=== PATIENT | female | born 1980 | race Caucasian/White ===

== ENCOUNTER 2022-08-09 07:41 | Day surgery (SDC) | payer BC ==
[2022-08-09] VITALS (35 sets, daily range): BP systolic 126–172; BP diastolic 80–107
[~2022-08-09] VITALS: Ht 162.6 cm; Wt 61.0 kg
[~2022-08-09 07:41] MED LIST: BISA-78 PO; famotidine 20mg tablet PO ONE; ringers solution, lacted 1,000 ML IV SCH; tranexamic acid inj. 1,000 MG in normal saline IV soln 100ML IV ONE
[2022-08-09] MEDS ORDERED: methylPREDNISolone acetate 80mg/ml inj**IM only ONE (08:04)
[2022-08-09] MEDS ORDERED: tranexamic acid 100mg/ml inj. ONE (08:04)
[2022-08-09] MEDS ORDERED: LIDOCAINE 1%/EPI 1:100,000 inj. 10 ML multi-dose vial ONE (08:04)
[2022-08-09] MEDS ORDERED: cocaine 4% topical solution 4ml bottle ONE (08:04)
[2022-08-09] MEDS ORDERED: oxymetazoline 15 ML nasal spray NS ONE (08:05)
[2022-08-09] MEDS ORDERED: mupirocin 2% ointment 22GM ONE (08:05)
[2022-08-09] MEDS ORDERED: morphine 2 MG/ML inj. syringe IV PRN (09:35)
[2022-08-09] MEDS ORDERED: proCHLORperazine 10 MG/2 ml inj IV PRN (09:35)
[2022-08-09] MEDS ORDERED: ondansetron/PF 4mg/2ml inj IV PRN (09:35)
[2022-08-09] MEDS ORDERED: ringers solution, lacted 1,000 ML IV SCH (09:35)
[2022-08-09] MEDS ORDERED: morphine 4 MG/ML inj SYRINge IV PRN (09:35)
[2022-08-09] MEDS ORDERED: meperidine/PF 25mg/ml syringe IV PRN ×2 (09:35)
[2022-08-09] MEDS ORDERED: ondansetron/PF 4mg/2ml inj ONE (10:20)
[2022-08-09] MEDS ORDERED: sevoflurane 250ml liquid IH ONE (10:20)
[2022-08-09] MEDS ORDERED: dexamethasone sod phosphate 10mg/ml inj ONE (10:20)
[2022-08-09] MEDS ORDERED: FENTANYL CITRATE/PF 50 MCG/1 ML VIAL ONE (10:24)
[2022-08-09] MEDS ORDERED: midazolam 1 mg/ML 2ml injection ONE (10:25)
[2022-08-09] MEDS ORDERED: propofol inj 20 ML IV ONE (10:37)
[2022-08-09] MEDS ORDERED: LIDOcaine 2% (20mg/ml) 5ml vial ONE (10:37)
[2022-08-09] MEDS ORDERED: acetaminophen 1,000mg/100ml IV 100 ML IV ONE (11:20)
--- NOTE | 2022-08-09 11:45 | NUR ---
Received from OR via [facility], accompanied by Anesthesiologist and report given by LINO Anesthesiologist. PATIENT WAKING UP, DENIES PAIN, VSS, 20G PIV TO LEFT HAND, BILATERAL NASAL COTTONOID DRESSING C/D/I. Addendum: 08/09/22 at 1201 by Sean Oneal RN Amended: Links added.
[2022-08-09] MEDS ORDERED: salt irrigation nasal spray 45 ML SPRAY NS PRN (11:55)
[2022-08-09] MEDS: labetalol 20mg/4ml (5mg/ml) syringe IV PRN ×5 (12:18→13:40)
[2022-08-09] MEDS: meperidine/PF 25mg/ml syringe IV PRN ×2 (12:32→14:56)
[2022-08-09] MEDS ORDERED: hydrALAZINE 20mg/ml inj. IV PRN (14:15)
--- NOTE | 2022-08-09 15:05 | NUR ---
PT UP AND DRESSED, ABLE TO VOID, VSS, DENIES ANY PAIN, PIV D/CD-CANNULA INTACT, DISCUSSED HOME CARE FOR NASAL IRRIGATION AND MEDICATIONS, PT USED OCEAN SPRAY AND OINTMENT BEFORE LEAVING, ALL QUESTIONS ANSWERED, PT TAKEN WITH SUPPLIES AND BELONGINGS TO VEHICLE, TRANSPORTED BY FAMILY HOME. Addendum: 08/09/22 at 1512 by Sean Oneal RN Amended: Links added.
== END 2022-08-09 15:05 | disposition home or self-care (01) ==
LOC: PAS 07:41
PROVIDERS: ATTEND Otolaryngology
DX: J32.9 Chronic sinusitis, unspecified (principal); J34.3 Hypertrophy of nasal turbinates; Z79.899 Other long term (current) drug therapy; Z98.890 Other specified postprocedural states; Z20.822 Contact with and (suspected) exposure to COVID-19
CPT/HCPCS: 30140; 31253; 31267; 36415; 61782; 82948; 87070; 87075; 87077; 87186; 87635; A6402; C9250; C9803; J0131; J0360; J1100; J2175; J2250; J2405; J2704; J3010; J3490; J7030; J7040; J7120; U0003; U0005; Z7506; Z7508; Z7512; A4618; A6449; A7000; J1040